=== PATIENT | female | born 1975 | race Caucasian/White ===

== ENCOUNTER 2017-07-17 14:33 | Emergency (ER) | payer SELFPAY ==
[2017-07-17] MEDS ORDERED: NORMAL SALINE 1000 ML 1,000 ML IV PRN (17:12)
[2017-07-17] MEDS ORDERED: ONDANSETRON HCL INJ/PF 4 MG/2 ML SDV IV ONE (17:12)
[2017-07-17] MEDS ORDERED: FAMOTIDINE INJ/PF 20 MG/2 ML SDV IV ONE (17:12)
--- NOTE | 2017-07-17 17:16 | ER Document Report ---
ED GI/ - General Chief Complaint: Nausea/Vomiting/Diarrhea Stated Complaint: ABDOMINAL PAIN Time Seen by Provider: 07/17/17 17:06 Mode of Arrival: Ambulatory Information source: Patient TRAVEL OUTSIDE OF THE [place] IN LAST 30 DAYS: No - HPI Patient complains to provider of: Abdominal pain, Vomiting Onset: Other - 3 days Timing/Duration: Gradual, Persistent Quality of pain: Achy, Burning Severity at maximum: Moderate Severity in ED: Moderate Pain Level: 3 Location: Epigastric Associated symptoms: Diarrhea, Nausea, Vomiting Similar symptoms previously: Yes Recently seen / treated by doctor: No Notes: 07/17/17 17:13 Patient is a 41-year-old female with a history of gastric ulcers who presents to the emergency room today complaining of epigastric and right upper quadrant abdominal pain with "ulcers flaring up", symptoms have been going on since Thursday, she also has 2 episodes of vomiting today which was acidic in nature , and diarrhea, she reports some abdominal bloating or swelling as well, patient has a control specialist, Dr. Huston that she follows with, denies any blood in her vomit or stools, no urinary symptoms - Related Data Allergies/Adverse Reactions: levofloxacin [From Levaquin] Allergy (Severe, Verified 09/09/16 11:42) MUSCLE PAIN NSAIDS (Non-Steroidal Anti-Inflamma [Nsaids] Allergy (Severe, Verified 09/09/16 11:42) AGGRAVATES KIDNEY STONES ketorolac tromethamine [From Toradol] Allergy (Intermediate, Verified 09/09/16 11:42) MAKES FEEL LIKE HEAD IS GOING TO BURST latex [Latex] Allergy (Intermediate, Verified 09/09/16 11:42) RASH, RIPS SKIN OFF promethazine HCl [From Phenergan] Allergy (Intermediate, Verified 09/09/16 11:42 ) MAKES FEEL WORSE tramadol Allergy (Intermediate, Verified 09/09/16 11:42) MAKES HEAD FEEL LIKE GOING TO BURST Penicillins Allergy (Mild, Verified 09/09/16 11:42) RASH Past Medical History - General Information source: Patient - Social History Smoking Status: Current Every Day Smoker Drug Abuse: Marijuana Family History: Reviewed & Not Pertinent Patient has suicidal ideation: No Patient has homicidal ideation: No - Past Medical History Cardiac Medical History: Reports: Hx Hypertension Denies: Hx Coronary Artery Disease, Hx Heart Attack Pulmonary Medical History: Reports: Hx Asthma, Hx Bronchitis, Hx COPD Denies: Hx Pneumonia Neurological Medical History: Reports: Hx Migraine. Denies: Hx Cerebrovascular Accident, Hx Seizures Renal/ Medical History: Denies: Hx Peritoneal Dialysis Musculoskeltal Medical History: Reports Hx Arthritis Past Surgical History: Reports: Hx Orthopedic Surgery. Denies: Hx Hysterectomy - Immunizations Hx Diphtheria, Pertussis, Tetanus Vaccination: Yes - < 5yrs Review of Systems - Review of Systems Constitutional: No symptoms reported EENT: No symptoms reported Cardiovascular: No symptoms reported Respiratory: No symptoms reported Gastrointestinal: See HPI Genitourinary: No symptoms reported Female Genitourinary: No symptoms reported Musculoskeletal: No symptoms reported Skin: No symptoms reported Hematologic/Lymphatic: No symptoms reported Neurological/Psychological: No symptoms reported -: Yes All other systems reviewed and negative Physical Exam - Vital signs Vitals: Temp Pulse Resp BP Pulse Ox 98.9 F 77 20 144/99 H 100 07/17/17 14:54 07/17/17 14:54 07/17/17 14:54 07/17/17 14:54 07/17/17 14:54 Interpretation: Normal - General General appearance: Appears well, Alert - HEENT Head: Normocephalic, Atraumatic Eyes: Normal Pupils: PERRL - Respiratory Respiratory status: No respiratory distress Chest status: Nontender Breath sounds: Normal Chest palpation: Normal - Cardiovascular Rhythm: Regular Heart sounds: Normal auscultation Murmur: No - Abdominal Inspection: Normal Distension: No distension Bowel sounds: Normal Tenderness: Tender - epigastric Organomegaly: No organomegaly - Back Back: Normal, Nontender - Extremities General upper extremity: Normal inspection, Nontender, Normal color, Normal ROM , Normal temperature General lower extremity: Normal inspection, Nontender, Normal color, Normal ROM , Normal temperature, Normal weight bearing. No: Darryl's sign - Neurological Neuro grossly intact: Yes Cognition: Normal Orientation: AAOx4 [place] Coma Scale Eye Opening: Spontaneous [place] Coma Scale Verbal: Oriented [place] Coma Scale Motor: Obeys Commands [place] Coma Scale Total: 15 Speech: Normal Motor strength normal: LUE, RUE, LLE, RLE Sensory: Normal - Psychological Associated symptoms: Normal affect, Normal mood - Skin Skin Temperature: Warm Skin Moisture: Dry Skin Color: Normal Course - Re-evaluation Re-evalutation: 07/17/17 19:23 Patient resting comfortably, reports feeling much better, lab findings were discussed with her at bedside which are consistent with mild dehydration and urinary tract infection, she was started on antibiotics for this, also provided with several prescriptions for her gastrointestinal medications, she was advised to follow-up with her control specialist or return if symptoms worsen, patient acknowledges understanding and agreement with this plan - Vital Signs Vital signs: Temp Pulse Resp BP Pulse Ox 98.9 F 77 20 144/99 H 100 07/17/17 14:54 07/17/17 14:54 07/17/17 14:54 07/17/17 14:54 07/17/17 14:54 - Laboratory Result Diagrams: 07/17/17 18:15 07/17/17 18:15 Laboratory results interpreted by me: 07/17/17 07/17/17 07/17/17 18:05 18:15 18:15 Hgb 11.1 L Hct 35.2 L MCV 71 L MCH 22.5 L MCHC 31.5 L RDW 20.0 H Plt Count 533 H Chloride 108 H Carbon Dioxide 21 L Glucose 130 H Urine Blood MODERATE H Urine Nitrite POSITIVE H Urine Urobilinogen 2.0 H Discharge - Discharge Clinical Impression: Epigastric abdominal pain Condition: Stable Disposition: HOME, SELF-CARE Instructions: Abdominal Pain ([facility]) Additional Instructions: Follow-up with her control specialist and primary care provider in the next 2-3 days. Return to the emergency room immediately if symptoms worsen or any additional concerns. Prescriptions: Dicyclomine HCl [Bentyl 20 mg Tablet] 20 mg PO QID #120 tablet Esomeprazole Mag Trihydrate [Nexium] 40 mg PO DAILY #30 cap Nitrofurantoin/Nitrofuran Mac [Macrobid 100 mg Capsule] 100 mg PO BID #20 capsule Phenobarb/Hyoscy/Atropine/Scop [ Tablet] 16.2 mg PO TID #60 tablet Sucralfate [Carafate 1 gm Tablet] 1 gm PO ACHS #30 tablet Referrals: RENEA MCKAY PA-C [Primary Care Provider] - Follow up as needed TARA HUSTON MD [ACTIVE STAFF] - Follow up as needed
[2017-07-17 18:28] LABS: ABSOLUTE BASOPHILS # (AUTO) 0.1 10^3/uL (0.0-0.2); ABSOLUTE EOSINOPHILS # (AUTO) 0.1 10^3/uL (0.0-0.6); ABSOLUTE LYMPHOCYTES (AUTO) 2.3 10^3/uL (0.5-4.7); ABSOLUTE MONOCYTES (AUTO) 0.5 10^3/uL (0.1-1.4); ABSOLUTE NEUT (AUTO) 6.9 10^3/uL (1.7-8.2); BASOPHILS % (AUTO) 1.3 % (0-2); EOSINOPHILS % (AUTO) 1.5 % (0-6); HEMATOCRIT 35.2 % (36.0-47.0); HEMOGLOBIN 11.1 g/dL (12.0-15.5); HGB HCT DIFFERENCE -1.9; LYMPHOCYTES % (AUTO) 23.5 % (13-45); MEAN CORPUSCULAR HEMOGLOBIN 22.5 pg (27.0-33.4); MEAN CORPUSCULAR HGB CONC 31.5 g/dL (32.0-36.0); MEAN CORPUSCULAR VOLUME 71 fl (80-97); MONOCYTES % (AUTO) 4.6 % (3-13); RED BLOOD COUNT 4.94 10^6/uL (3.72-5.28); SEGMENTED NEUTROPHILS % (AUTO) 69.1 % (42-78)
[2017-07-17 18:34] LABS: APPEARANCE,URINE CLEAR; BILIRUBIN,URINE NEGATIVE (NEGATIVE); GLUCOSE, URINE NEGATIVE (NEGATIVE); KETONES,URINE NEGATIVE (NEGATIVE); LEUKOCYTE ESTERASE,URINE NEGATIVE (NEGATIVE); NITRITE,URINE POSITIVE (NEGATIVE); PROTEIN,URINE NEGATIVE (NEGATIVE); URINE SPECIFIC GRAVITY 1.017
[2017-07-17 18:47] LABS: ALANINE AMINOTRANSFERASE 20 U/L (9-52); ALBUMIN 4.5 g/dL (3.5-5.0); ALKALINE PHOSPHATASE 104 U/L (38-126); ANION GAP 11 (5-19); ASPARTATE AMINO TRANSFERASE 19 U/L (14-36); BILIRUBIN,DIRECT 0.4 mg/dL (0.0-0.4); BILIRUBIN,TOTAL 0.4 mg/dL (0.2-1.3); BLOOD UREA NITROGEN 10 mg/dL (7-20); CARBON DIOXIDE 21 mmol/L (22-30); CHLORIDE 108 mmol/L (98-107); CREATININE RESULT 0.79 mg/dL (0.52-1.25); GLUCOSE 130 mg/dL (75-110); LIPASE 36.2 U/L (23-300); POTASSIUM 4.8 mmol/L (3.6-5.0); SODIUM 139.6 mmol/L (137-145); TOTAL PROTEIN 7.5 g/dL (6.3-8.2)
[2017-07-17] MEDS ORDERED: DICYCLOMINE HCL 20 MG TABLET PO ONE (18:58)
[2017-07-17] MEDS ORDERED: NITROFURANTOIN MONOHYD/M-CRYST 100 MG CAPSULE PO ONE (19:01)
[2017-07-17] MEDS ORDERED: MORPHINE SULFATE 10 MG/ML INJ IV ONE (19:03)
[2017-07-17 20:03] VITALS: BP 147/82
== END 2017-07-17 20:04 | disposition home or self-care (01) ==
LOC: ER 14:33
DX: K25.9 Gastric ulcer, unspecified as acute or chronic, without hemorrhage or perforation (principal); R11.2 Nausea with vomiting, unspecified; R19.7 Diarrhea, unspecified; R10.13 Epigastric pain; R10.11 Right upper quadrant pain; F17.200 Nicotine dependence, unspecified, uncomplicated; J44.9 Chronic obstructive pulmonary disease, unspecified; I10 Essential (primary) hypertension; Z87.11 Personal history of peptic ulcer disease; Z88.1 Allergy status to other antibiotic agents; Z88.8 Allergy status to other drugs, medicaments and biological substances; Z91.040 Latex allergy status; Z88.5 Allergy status to narcotic agent; Z88.0 Allergy status to penicillin
CPT/HCPCS: 99284; 36415; 83690; 85025; 80053; 81001; J3490; J2270; J2405; J7030; S0028; J8499

== ENCOUNTER 2017-08-14 10:34 | Emergency (ER) | payer SELFPAY ==
[2017-08-14] MEDS ORDERED: DIPHENHYDRAMINE HCL 50 MG/ML VIAL IV ONE (10:54)
[2017-08-14] MEDS ORDERED: PROCHLORPERAZINE EDISYLATE INJ 10 MG/2 ML VIAL IV ONE (10:54)
[2017-08-14] MEDS ORDERED: NORMAL SALINE 1000 ML 1,000 ML IV ONE (10:55)
[2017-08-14] MEDS ORDERED: FAMOTIDINE INJ/PF 20 MG/2 ML SDV IV ONE (10:55)
--- NOTE | 2017-08-14 11:01 | ER Document Report ---
ED Headache - General Chief Complaint: Headache Stated Complaint: HEADACHE Time Seen by Provider: 08/14/17 10:41 Mode of Arrival: Ambulatory Information source: Patient Notes: 41-year-old female presents to ED for complaint of headache 3 weeks. She states she has a long history of migraines and is seen frequently and was being seen by Dr. Garcia Botox injections until her insurance would not let her get them anymore. TRAVEL OUTSIDE OF THE [place] IN LAST 30 DAYS: No - HPI Patient complains to provider of: Headache, "Migraine" Patient reports: Frequent migraines, Hx chronic headaches Onset: Other - 3 weeks Timing: Still present Quality of pain: Sharp Severity: Moderate Pain Level: 4 Associated symptoms: Nausea/vomiting - No vomiting, Photophobia, Other Exacerbated by: Light, Noise, Movement, Position Similar symptoms previously: Yes Recently seen / treated by doctor: Yes - Related Data Allergies/Adverse Reactions: levofloxacin [From Levaquin] Allergy (Severe, Verified 08/14/17 10:37) MUSCLE PAIN NSAIDS (Non-Steroidal Anti-Inflamma [Nsaids] Allergy (Severe, Verified 08/14/17 10:37) AGGRAVATES KIDNEY STONES ketorolac tromethamine [From Toradol] Allergy (Intermediate, Verified 08/14/17 10:37) MAKES FEEL LIKE HEAD IS GOING TO BURST latex [Latex] Allergy (Intermediate, Verified 08/14/17 10:37) RASH, RIPS SKIN OFF promethazine HCl [From Phenergan] Allergy (Intermediate, Verified 08/14/17 10:37 ) MAKES FEEL WORSE tramadol Allergy (Intermediate, Verified 08/14/17 10:37) MAKES HEAD FEEL LIKE GOING TO BURST Penicillins Allergy (Mild, Verified 08/14/17 10:37) RASH Past Medical History - General Information source: Patient - Social History Smoking Status: Current Every Day Smoker Cigarette use (# per day): Yes - 1/2 ppd Chew tobacco use (# tins/day): No Smoking Education Provided: Yes - less than 2 min Frequency of alcohol use: None Drug Abuse: Marijuana - 2-3 times a week Occupation: Housewife Lives with: Family Family History: CAD, COPD, CVA, Hyperlipidemia, Hypertension, Malignancy, Thyroid Disfunction. denies: DM Patient has suicidal ideation: No Patient has homicidal ideation: No - Past Medical History Cardiac Medical History: Reports: Hx Hypertension Pulmonary Medical History: Reports: Hx Asthma, Hx Bronchitis, Hx COPD, Hx Pneumonia EENT Medical History: Reports: None Neurological Medical History: Reports: Hx Migraine Renal/ Medical History: Reports: Hx Ovarian Cysts Malignancy Medical History: Reports: None GI Medical History: Reports: Hx Gastritis, Hx Gastroesophageal Reflux Disease, Hx Ulcer, Hx Endoscopy, Other - Menard's esophagitis Musculoskeltal Medical History: Reports Hx Arthritis, Reports Hx Musculoskeletal Deformity, Reports Hx Musculoskeletal Trauma - Wrist knee Skin Medical History: Reports None Psychiatric Medical History: Reports: Hx Anxiety, Hx Post Traumatic Stress Disorder Traumatic Medical History: Reports: Hx Fractures - Wrist Infectious Medical History: Reports: None Past Surgical History: Reports: Hx Oral Surgery - [place] teeth, Hx Orthopedic Surgery - Immunizations Immunizations up to date: Yes Hx Diphtheria, Pertussis, Tetanus Vaccination: Yes - < 5yrs Review of Systems - Review of Systems Constitutional: No symptoms reported EENT: No symptoms reported Cardiovascular: No symptoms reported Respiratory: No symptoms reported Gastrointestinal: Nausea. denies: Vomiting Genitourinary: No symptoms reported Female Genitourinary: No symptoms reported Musculoskeletal: No symptoms reported Skin: No symptoms reported Hematologic/Lymphatic: No symptoms reported Neurological/Psychological: Headaches Physical Exam - Vital signs Vitals: Temp Pulse Resp BP Pulse Ox 98.6 F 65 16 168/100 H 99 08/14/17 10:36 08/14/17 10:36 08/14/17 10:36 08/14/17 10:36 08/14/17 10:36 Interpretation: Hypertensive - General General appearance: Appears well, Alert - HEENT Head: Normocephalic, Atraumatic Eyes: Normal Pupils: PERRL Ears: Normal External canal: Normal Tympanic membrane: Normal Sinus: Normal Nasal: Normal Mouth/Lips: Normal Mucous membranes: Normal Pharynx: Normal Neck: Normal - Respiratory Respiratory status: No respiratory distress Chest status: Nontender Breath sounds: Normal Chest palpation: Normal - Cardiovascular Rhythm: Regular Heart sounds: Normal auscultation Murmur: No - Abdominal Inspection: Normal Distension: No distension Bowel sounds: Normal Tenderness: Nontender Organomegaly: No organomegaly - Back Back: Normal, Nontender - Extremities General upper extremity: Normal inspection, Nontender, Normal color, Normal ROM , Normal temperature General lower extremity: Normal inspection, Nontender, Normal color, Normal ROM , Normal temperature, Normal weight bearing. No: Darryl's sign - Neurological Neuro grossly intact: Yes Cognition: Normal Orientation: AAOx4 [place] Coma Scale Eye Opening: Spontaneous [place] Coma Scale Verbal: Oriented [place] Coma Scale Motor: Obeys Commands [place] Coma Scale Total: 15 Speech: Normal Cranial nerves: Normal Cerebellar coordination: Normal Motor strength normal: LUE, RUE, LLE, RLE Additional motor exam normals: Equal clinical radiologist Babinski reflex: Normal (flexor plantar) Sensory: Normal Biceps - Reflex grade: 2 = Normal Triceps - Reflex grade: 2 = Normal Brachioradialis - Reflex grade: 2 = Normal Knee - Reflex grade: 2 = Normal Ankle - Reflex grade: 2 = Normal - Psychological Associated symptoms: Normal affect, Normal mood - Skin Skin Temperature: Warm Skin Moisture: Dry Skin Color: Normal Course - Re-evaluation Re-evalutation: 08/14/17 12:12 Received complete relief from headache. States she has never had Compazine for headache before and it worked great. Requested a prescription for some Compazine before going home. Small prescription of Compazine written and instructed patient to follow-up with her primary doctor. - Vital Signs Vital signs: Temp Pulse Resp BP Pulse Ox 98.0 F 64 16 139/84 H 100 08/14/17 12:17 08/14/17 12:17 08/14/17 12:17 08/14/17 12:17 08/14/17 12:17 Discharge - Discharge Clinical Impression: Headache Qualifiers: Headache type: unspecified Headache chronicity pattern: chronic headache Intractability: not intractable Qualified Code(s): R51 - Headache Condition: Stable Disposition: HOME, SELF-CARE Additional Instructions: HEADACHE: The physician does not feel that the headache you are experiencing has a serious underlying cause. Most headaches are due to emotional stress, with resultant muscle tension (tension headache). Occasionally, headaches are secondary to changes in the blood vessels of the scalp (vascular headache and migraine headache). Sometimes, a headache is the first symptom of another developing illness, such as a viral infection. You have no evidence of stroke, bleeding, meningitis, or other serious cause of your headache. The treatment of headaches varies with the severity and cause of the pain. Not all headaches need pain shots. In fact, there is evidence that using narcotics for headaches may make them worse in the long run. The physician will determine the therapy that's in your best interest. If you develop a fever, if the headache is different from any you've previously experienced, or if the headache progressively worsens, then call your physician at once or go to the emergency room. USE OF DIPHENHYDRAMINE: Diphenhydramine (Benadryl) is an antihistamine and has been recommended to help treat your headache and to prevent side effects of other medications used to treat headaches. The medication can be repeated four times daily. Age Elixir (12.5 mg/tsp) 25 mg pill adult 1-2 tabs Antihistamines may cause drowsiness, especially with the first dose. Do not operate machinery or drive while under the effects of the medication. Do not combine the medication with alcohol, or with any other medication without talking to your doctor. INTRAVENOUS COMPAZINE FOR HEADACHE: You have received therapy for headaches, using intravenous Compazine. This treatment is dramatically successful in relieving the headache in about 50 percent of cases. When it works, it provides a rapid method of eliminating the headache without resorting to narcotics (and the problems associated with them). Most patients still feel fully alert after the Compazine, but others may be slightly drowsy. It's best not to drive or work with machinery for six to eight hours. Do not take alcohol or other medication unless you discuss it with the doctor. If you develop tightness and spasms in your muscles, especially the neck and tongue, you should return. This is a side effect which can be treated. FOLLOW-UP CARE: If you have been referred to a physician for follow-up care, call the physician s office for an appointment as you were instructed or within the next two days. If you experience worsening or a significant change in your symptoms, notify the physician immediately or return to the Emergency Department at any time for re-evaluation. Prescriptions: Prochlorperazine Maleate [Compazine 10 mg Tablet] 10 mg PO Q8HP PRN #10 tablet PRN Reason: Forms: Smoking Cessation Education, Elevated Blood Pressure Referrals: RENEA MCKAY PA-C [Primary Care Provider] - Follow up as needed
[2017-08-14 12:24] VITALS: BP 139/84
== END 2017-08-14 12:24 | disposition home or self-care (01) ==
LOC: ER 10:34
DX: R51 Headache (principal); R11.0 Nausea; I10 Essential (primary) hypertension; J44.9 Chronic obstructive pulmonary disease, unspecified; F17.210 Nicotine dependence, cigarettes, uncomplicated; Z71.6 Tobacco abuse counseling; Z88.1 Allergy status to other antibiotic agents; Z88.8 Allergy status to other drugs, medicaments and biological substances; Z91.040 Latex allergy status; Z88.5 Allergy status to narcotic agent
CPT/HCPCS: 99284; 96361; 96374; 96375; J1200; J0780; J7030; S0028

== ENCOUNTER 2018-03-04 08:58 | Emergency (ER) | payer SELFPAY ==
--- NOTE | 2018-03-04 09:25 | ER Document Report ---
ED Medical Screen (RME) - General Chief Complaint: Abdominal Pain Stated Complaint: ABDOMINAL PAIN Time Seen by Provider: 03/04/18 09:19 Mode of Arrival: Ambulatory Information source: Patient, Parent Notes: 42-year-old female with a history of fibromyalgia, GERD, gastric ulcers presents with complaint of right upper quadrant and epigastric abdominal pain that started 4 days prior to arrival. Patient is under the care of Dr. Bonilla from gastroenterology. She states she currently takes Carafate, Dexilant and this has not been helping. Patient describes the pain as sharp, throbbing. Patient has had associated nausea and vomiting. Patient's last upper endoscopy was 1 year ago. She has not attempted to call her stenotypist since this occurred. She denies any black or bloody stools. Her last bowel movement was yesterday. I have greeted and performed a rapid medical assessment of the patient. A comprehensive evaluation and assessment will be performed by another ED provider. Medical decision making, lab review/xrays if performed will be reviewed by the ED provider assuming care of the patient. PHYSICAL EXAMINATION: GENERAL: Illl-appearing, well-nourished and in no acute distress. HEAD: Atraumatic, normocephalic. EYES: Pupils equal round extraocular movements intact, conjunctiva are normal. ENT: Nares patent NECK: Normal range of motion LUNGS: No respiratory distress Musculoskeletal: Normal range of motion NEUROLOGICAL: Normal speech, normal gait. PSYCH: Normal mood, normal affect. SKIN: Warm, Dry, normal turgor, no rashes or lesions noted. TRAVEL OUTSIDE OF THE [place] IN LAST 30 DAYS: No - HPI Onset: Last week Onset/Duration: Gradual Quality of pain: Burning, Stabbing Severity: Moderate Pain Level: 4 Associated Symptoms: Abdominal pain, Nausea. denies: Diarrhea Exacerbated by: Food Relieved by: Denies Similar symptoms previously: Yes Recently seen / treated by doctor: No - Related Data Smoking: Cigarettes Frequency of alcohol use: None Drug Abuse: None Allergies/Adverse Reactions: levofloxacin [From Levaquin] Allergy (Severe, Verified 03/04/18 09:00) MUSCLE PAIN NSAIDS (Non-Steroidal Anti-Inflamma [Nsaids] Allergy (Severe, Verified 03/04/18 09:00) AGGRAVATES KIDNEY STONES ketorolac tromethamine [From Toradol] Allergy (Intermediate, Verified 03/04/18 09:00) MAKES FEEL LIKE HEAD IS GOING TO BURST latex [Latex] Allergy (Intermediate, Verified 03/04/18 09:00) RASH, RIPS SKIN OFF promethazine HCl [From Phenergan] Allergy (Intermediate, Verified 03/04/18 09:00 ) MAKES FEEL WORSE tramadol Allergy (Intermediate, Verified 03/04/18 09:00) MAKES HEAD FEEL LIKE GOING TO BURST Penicillins Allergy (Mild, Verified 03/04/18 09:00) RASH Past Medical History - Social History Chew tobacco use (# tins/day): No Frequency of alcohol use: None Drug Abuse: None - Past Medical History Cardiac Medical History: Reports: Hx Hypertension Denies: Hx Coronary Artery Disease, Hx Heart Attack Pulmonary Medical History: Reports: Hx Asthma, Hx Bronchitis, Hx COPD, Hx Pneumonia Neurological Medical History: Reports: Hx Migraine. Denies: Hx Cerebrovascular Accident, Hx Seizures Renal/ Medical History: Reports: Hx Ovarian Cysts. Denies: Hx Peritoneal Dialysis GI Medical History: Reports: Hx Gastritis, Hx Gastroesophageal Reflux Disease, Hx Ulcer, Hx Endoscopy Musculoskeltal Medical History: Reports Hx Arthritis, Reports Hx Musculoskeletal Deformity, Reports Hx Musculoskeletal Trauma - Wrist knee Psychiatric Medical History: Reports: Hx Anxiety, Hx Post Traumatic Stress Disorder Traumatic Medical History: Reports: Hx Fractures - Wrist Past Surgical History: Reports: Hx Oral Surgery - [place] teeth, Hx Orthopedic Surgery. Denies: Hx Hysterectomy - Immunizations Immunizations up to date: Yes Hx Diphtheria, Pertussis, Tetanus Vaccination: Yes - < 5yrs Physical Exam - Vital signs Vitals: Temp Pulse Resp BP Pulse Ox 97.9 F 100 18 143/100 H 100 03/04/18 09:02 03/04/18 09:02 03/04/18 09:02 03/04/18 09:02 03/04/18 09:02 Course - Vital Signs Vital signs: Temp Pulse Resp BP Pulse Ox 97.9 F 100 18 143/100 H 100 03/04/18 09:02 03/04/18 09:02 03/04/18 09:02 03/04/18 09:02 03/04/18 09:02
[2018-03-04] MEDS ORDERED: ONDANSETRON 4 MG TAB.RAPDIS PO ONE (09:26)
[2018-03-04] MEDS ORDERED: LIDOCAINE 2% VISCOUS SOLN 20 ML UDCUP PO ONE (09:26)
[2018-03-04] MEDS ORDERED: METOCLOPRAMIDE HCL ORAL SOLN 10 MG/10 ML UDCUP PO ONE (09:26)
[2018-03-04] MEDS ORDERED: MAG HYDROX/AL HYDROX/SIMETH SUSP 30 ML UDCUP PO ONE (09:26)
--- NOTE | 2018-03-04 09:45 | ER Document Report ---
ED GI/ - General Chief Complaint: Abdominal Pain Stated Complaint: ABDOMINAL PAIN Time Seen by Provider: 03/04/18 09:19 Mode of Arrival: Ambulatory Information source: Patient Notes: Patient presents with a four-day history of right upper quadrant epigastric pain. Patient states she has a history of Menard's esophagus with gastric ulcers. Patient states pain feels typical of her pain she has had in the past due to her ulcers. Patient denies any hematemesis or hematochezia. Patient reports nausea but denies any vomiting or diarrhea. Patient states that she is out of Bentyl which typically manages her pain symptoms. TRAVEL OUTSIDE OF THE [place] IN LAST 30 DAYS: No - HPI Patient complains to provider of: Abdominal pain. No: Vomiting Onset: Other - 4 days Timing/Duration: Persistent Quality of pain: Achy Pain Level: 3 Location: RUQ, Other - Epigastric Vaginal bleeding (Compared to normal period): None Associated symptoms: Nausea. denies: Blood in emesis, Blood in stool, Diarrhea , Fever, Loss of appetite, Urinary hesitancy, Urinary frequency, Urinary retention, Vomiting Exacerbated by: Denies Relieved by: Denies Similar symptoms previously: Yes Recently seen / treated by doctor: No - Related Data Allergies/Adverse Reactions: levofloxacin [From Levaquin] Allergy (Severe, Verified 03/04/18 09:00) MUSCLE PAIN NSAIDS (Non-Steroidal Anti-Inflamma [Nsaids] Allergy (Severe, Verified 03/04/18 09:00) AGGRAVATES KIDNEY STONES ketorolac tromethamine [From Toradol] Allergy (Intermediate, Verified 03/04/18 09:00) MAKES FEEL LIKE HEAD IS GOING TO BURST latex [Latex] Allergy (Intermediate, Verified 03/04/18 09:00) RASH, RIPS SKIN OFF promethazine HCl [From Phenergan] Allergy (Intermediate, Verified 03/04/18 09:00 ) MAKES FEEL WORSE tramadol Allergy (Intermediate, Verified 03/04/18 09:00) MAKES HEAD FEEL LIKE GOING TO BURST Penicillins Allergy (Mild, Verified 03/04/18 09:00) RASH Past Medical History - General Information source: Patient, Parent - Social History Smoking Status: Current Every Day Smoker Chew tobacco use (# tins/day): No Smoking Education Provided: Yes Frequency of alcohol use: None Drug Abuse: None Occupation: None Family History: CAD, COPD, CVA, Hyperlipidemia, Hypertension, Malignancy, Thyroid Disfunction. denies: DM Patient has suicidal ideation: No Patient has homicidal ideation: No - Past Medical History Cardiac Medical History: Reports: Hx Hypertension Denies: Hx Coronary Artery Disease, Hx Heart Attack Pulmonary Medical History: Reports: Hx Asthma, Hx Bronchitis, Hx COPD, Hx Pneumonia Neurological Medical History: Reports: Hx Migraine. Denies: Hx Cerebrovascular Accident, Hx Seizures Renal/ Medical History: Reports: Hx Ovarian Cysts. Denies: Hx Peritoneal Dialysis GI Medical History: Reports: Hx Gastritis, Hx Gastroesophageal Reflux Disease, Hx Ulcer, Hx Endoscopy, Other - Menard's esophagus Musculoskeltal Medical History: Reports Hx Arthritis, Reports Hx Musculoskeletal Deformity, Reports Hx Musculoskeletal Trauma - Wrist knee Psychiatric Medical History: Reports: Hx Anxiety, Hx Post Traumatic Stress Disorder Traumatic Medical History: Reports: Hx Fractures - Wrist Past Surgical History: Reports: Hx Oral Surgery - [place] teeth, Hx Orthopedic Surgery. Denies: Hx Hysterectomy - Immunizations Immunizations up to date: Yes Hx Diphtheria, Pertussis, Tetanus Vaccination: Yes - < 5yrs Review of Systems - Review of Systems Constitutional: No symptoms reported. denies: Fever, Recent illness EENT: No symptoms reported Cardiovascular: No symptoms reported. denies: Chest pain Respiratory: No symptoms reported. denies: Cough, Short of breath Gastrointestinal: Abdominal pain, Nausea. denies: Diarrhea, Vomiting Genitourinary: No symptoms reported. denies: Dysuria Female Genitourinary: No symptoms reported Musculoskeletal: No symptoms reported. denies: Back pain, Neck pain Skin: No symptoms reported Hematologic/Lymphatic: No symptoms reported Neurological/Psychological: No symptoms reported. denies: Headaches Physical Exam - Vital signs Vitals: Temp Pulse Resp BP Pulse Ox 97.9 F 100 18 143/100 H 100 03/04/18 09:02 03/04/18 09:02 03/04/18 09:02 03/04/18 09:02 03/04/18 09:02 - General General appearance: Appears well, Alert In distress: None - HEENT Head: Normocephalic, Atraumatic Eyes: Normal Conjunctiva: Normal Nasal: Normal Mouth/Lips: Normal Mucous membranes: Normal Neck: Normal, Supple. No: Lymphadenopathy - Respiratory Respiratory status: No respiratory distress Chest status: Nontender Breath sounds: Normal. No: Rales, Rhonchi, Stridor, Wheezing Chest palpation: Normal - Cardiovascular Rhythm: Regular Heart sounds: S1 appreciated, S2 appreciated Murmur: No - Abdominal Inspection: Normal Distension: No distension Bowel sounds: Normal Tenderness: Tender - RUQ Organomegaly: No organomegaly - Back Back: Normal, Nontender. No: CVA tenderness, Vertebra tenderness - Extremities General upper extremity: Normal inspection, Normal ROM General lower extremity: Normal inspection, Normal ROM - Neurological Neuro grossly intact: Yes Cognition: Normal [place] Coma Scale Eye Opening: Spontaneous [place] Coma Scale Verbal: Oriented [place] Coma Scale Motor: Obeys Commands [place] Coma Scale Total: 15 - Psychological Associated symptoms: Normal affect, Normal mood - Skin Skin Temperature: Warm Skin Moisture: Dry Skin Color: Normal Course - Re-evaluation Re-evalutation: 03/04/18 12:11 Patient reports abdominal pain is improved after medication. Patient's abdomen soft, no guarding. Patient states that nausea is improved after Zofran. Patient states that her pain has been similar to pain she has had in the past due to her gastric/duodenal ulcer. Patient reports that she has better pain relief with use of Bentyl and is requesting a prescription for this. Patient encouraged to follow-up with her rivet sticker for further evaluation. Patient's ultrasound without findings concerning for cholecystitis, cholangitis or choledocholithiasis. Patient afebrile and nontoxic in appearance. - Vital Signs Vital signs: Temp Pulse Resp BP Pulse Ox 98.5 F 75 18 134/86 H 100 03/04/18 11:53 03/04/18 11:53 03/04/18 11:53 03/04/18 11:53 03/04/18 11:53 - Laboratory Result Diagrams: 03/04/18 10:20 03/04/18 10:20 Laboratory results interpreted by me: 03/04/18 03/04/18 03/04/18 09:05 10:20 10:20 Hgb 10.3 L Hct 32.0 L MCV 70 L MCH 22.5 L RDW 18.5 H Plt Count 457 H Seg Neutrophils % 78.3 H Chloride 109 H Calcium 10.3 H AST 13 L Urine Blood SMALL H Labs- Entire Visit 03/04/18 03/04/18 03/04/18 09:05 10:20 10:20 WBC 8.5 RBC 4.57 Hgb 10.3 L Hct 32.0 L MCV 70 L MCH 22.5 L MCHC 32.1 RDW 18.5 H Plt Count 457 H Seg Neutrophils % 78.3 H Lymphocytes % 16.8 Monocytes % 3.6 Eosinophils % 0.6 Basophils % 0.7 Absolute Neutrophils 6.7 Absolute Lymphocytes 1.4 Absolute Monocytes 0.3 Absolute Eosinophils 0.0 Absolute Basophils 0.1 Sodium 144.3 Potassium 4.9 Chloride 109 H Carbon Dioxide 23 Anion Gap 12 BUN 9 Creatinine 0.59 Est GFR ( Amer) > 60 Est GFR (Non-Af Amer) > 60 Glucose 97 Calcium 10.3 H Total Bilirubin 0.3 Direct Bilirubin 0.3 Neonat Total Bilirubin Not Reportable Neonat Direct Bilirubin Not Reportable Neonat Indirect Bili Not Reportable AST 13 L ALT 17 Alkaline Phosphatase 85 Total Protein 7.5 Albumin 4.5 Lipase 49.2 Urine Color STRAW Urine Appearance SLIGHTLY-CLOUDY Urine pH 7.0 Ur Specific [place] 1.004 Urine Protein NEGATIVE Urine Glucose (UA) NEGATIVE Urine Ketones NEGATIVE Urine Blood SMALL H Urine Nitrite NEGATIVE Urine Bilirubin NEGATIVE Urine Urobilinogen NEGATIVE Ur Leukocyte Esterase NEGATIVE Urine WBC (Auto) 0 Urine RBC (Auto) 1 Squamous Epi Cells Auto 5 Urine Mucus (Auto) RARE Urine Ascorbic Acid NEGATIVE Urine HCG, Qual NEGATIVE - Diagnostic Test Radiology reviewed: Reports reviewed Discharge - Discharge Clinical Impression: Abdominal pain Qualifiers: Abdominal location: right upper quadrant Qualified Code(s): R10.11 - Right upper quadrant pain Condition: Stable Disposition: HOME, SELF-CARE Instructions: Abdominal Pain ([facility]), Antinausea Medication ([facility]) Additional Instructions: Return immediately for any new or worsening symptoms Followup with your primary care provider, call tomorrow to make a followup appointment Follow-up with your rivet sticker for further evaluation, call tomorrow for an appointment Prescriptions: Dicyclomine HCl [Bentyl 20 mg Tablet] 20 mg PO QID PRN #14 tablet PRN Reason: Ondansetron HCl [Zofran 4 mg Tablet] 1 - 2 tab PO Q6 PRN #10 tablet PRN Reason: Forms: Smoking Cessation Education Referrals: RENEA MCKAY PA-C [Primary Care Provider] - Follow up as needed TARA HUSTON MD [ACTIVE STAFF] - Follow up tomorrow
[2018-03-04] MEDS ORDERED: NORMAL SALINE 1000 ML 1,000 ML IV ONE (10:14)
[2018-03-04 10:42] LABS: ABSOLUTE BASOPHILS # (AUTO) 0.1 10^3/uL (0.0-0.2); ABSOLUTE LYMPHOCYTES (AUTO) 1.4 10^3/uL (0.5-4.7); ABSOLUTE MONOCYTES (AUTO) 0.3 10^3/uL (0.1-1.4); ABSOLUTE NEUT (AUTO) 6.7 10^3/uL (1.7-8.2); BASOPHILS % (AUTO) 0.7 % (0-2); EOSINOPHILS % (AUTO) 0.6 % (0-6); HEMOGLOBIN 10.3 g/dL (12.0-15.5); LYMPHOCYTES % (AUTO) 16.8 % (13-45); MEAN CORPUSCULAR HEMOGLOBIN 22.5 pg (27.0-33.4); MEAN CORPUSCULAR HGB CONC 32.1 g/dL (32.0-36.0); MEAN CORPUSCULAR VOLUME 70 fl (80-97); MONOCYTES % (AUTO) 3.6 % (3-13); PLATELET COUNT 457 10^3/uL (150-450); RED BLOOD COUNT 4.57 10^6/uL (3.72-5.28); RED CELL DISTRIBUTION WIDTH 18.5 % (11.5-14.0); SEGMENTED NEUTROPHILS % (AUTO) 78.3 % (42-78); TOTAL CELLS COUNTED % (AUTO) 100 %; WHITE BLOOD COUNT 8.5 10^3/uL (4.0-10.5)
[2018-03-04 10:47] LABS: APPEARANCE,URINE SLIGHTLY-CLOUDY; BILIRUBIN,URINE NEGATIVE (NEGATIVE); COLOR,URINE STRAW; GLUCOSE, URINE NEGATIVE (NEGATIVE); KETONES,URINE NEGATIVE (NEGATIVE); LEUKOCYTE ESTERASE,URINE NEGATIVE (NEGATIVE); NITRITE,URINE NEGATIVE (NEGATIVE); PROTEIN,URINE NEGATIVE (NEGATIVE); URINE SPECIFIC GRAVITY 1.004; UROBILINOGEN,URINE NEGATIVE mg/dL (<2.0)
[2018-03-04 11:07] LABS: ALANINE AMINOTRANSFERASE 17 U/L (9-52); ALBUMIN 4.5 g/dL (3.5-5.0); ALKALINE PHOSPHATASE 85 U/L (38-126); ANION GAP 12 (5-19); ASPARTATE AMINO TRANSFERASE 13 U/L (14-36); BILIRUBIN,DIRECT 0.3 mg/dL (0.0-0.4); BILIRUBIN,TOTAL 0.3 mg/dL (0.2-1.3); BLOOD UREA NITROGEN 9 mg/dL (7-20); CALCIUM 10.3 mg/dL (8.4-10.2); CARBON DIOXIDE 23 mmol/L (22-30); CHLORIDE 109 mmol/L (98-107); GLUCOSE 97 mg/dL (75-110); LIPASE 49.2 U/L (23-300); POTASSIUM 4.9 mmol/L (3.6-5.0); SODIUM 144.3 mmol/L (137-145); TOTAL PROTEIN 7.5 g/dL (6.3-8.2)
--- NOTE | 2018-03-04 11:29 | RADIOLOGY REPORT (SQ) ---
EXAM DESCRIPTION: U/S ABDOMEN LIMITED W/O DOP COMPLETED DATE/TIME: 03/04/2018 11:19 am REASON FOR STUDY: RUQ pain COMPARISON: Abdominal CT scan dated June 2016 TECHNIQUE: Dynamic and static grayscale images acquired of the abdomen and recorded on PACS. Ezrao js selected color Doppler and spectral images recorded. LIMITATIONS: None. FINDINGS: PANCREAS: No masses. Visualized pancreatic duct normal caliber. Pancreatic tail could no t be visualized due to overlying bowel gas. LIVER: No masses. Echotexture normal. LIVER VASCULATURE: Normal directional flow of the main portal vein. GALLBLADDER: No stones. Normal wall thickness. No pericholecystic fluid. Gallbladder is in a relativ e contracted state. ULTRASOUND-DETECTED GODFREY'S SIGN: Negative. INTRAHEPATIC DUCTS AND COMMON DUCT: CBD and intrahepatic ducts normal caliber. No filling defects. INFERIOR VENA CAVA: Normal flow. AORTA: No aneurysm. RIGHT KIDNEY: 9.9 cm in length. . Normal echogenicity. No solid or suspicious masses. No hydronephr osis. No calcifications. PERITONEAL AND RIGHT PLEURAL SPACE: No ascites or effusions. OTHER: No other significant findings. IMPRESSION: No significant intra-abdominal abnormalities were identified. Findings as noted above TECHNICAL DOCUMENTATION: JOB ID: [id number] [employer]- All Rights Reserved Reading location - IP/workstation name: [email or web address]
[2018-03-04] MEDS ORDERED: FENTANYL CITRATE INJ/PF 100 MCG/2 ML AMPUL IV ONE (11:41)
[2018-03-04 11:58] VITALS: BP 134/86
== END 2018-03-04 12:33 | disposition home or self-care (01) ==
LOC: ER 08:58
DX: R10.11 Right upper quadrant pain (principal); R10.13 Epigastric pain; R11.0 Nausea; F17.200 Nicotine dependence, unspecified, uncomplicated; I10 Essential (primary) hypertension; Z87.19 Personal history of other diseases of the digestive system; Z87.11 Personal history of peptic ulcer disease; Z88.1 Allergy status to other antibiotic agents; Z88.8 Allergy status to other drugs, medicaments and biological substances; Z91.040 Latex allergy status; Z88.5 Allergy status to narcotic agent; Z88.0 Allergy status to penicillin
CPT/HCPCS: 99284; 96361; 96374; 36415; 83690; 85025; 81025; 80053; 81001; 76705; S0119; J3010; J3490; J7030

== ENCOUNTER 2018-07-08 11:38 | Emergency (ER) | payer SELFPAY ==
[2018-07-08] MEDS ORDERED: LIDOCAINE 2% VISCOUS SOLN 20 ML UDCUP PO ONE ×2 (11:46→14:26)
--- NOTE | 2018-07-08 13:51 | RADIOLOGY REPORT (SQ) ---
EXAM DESCRIPTION: CT FACIAL AREA WITH COMPLETED DATE/TIME: 07/08/2018 1:34 pm REASON FOR STUDY: left lower jaw tenderness, poor dentition COMPARISON: None. TECHNIQUE: Post contrast images through the facial bones and orbits windowed for bone and soft tissu e. Additional coronal and sagittal reconstructed images reviewed. All images stored on PACS. All CT scanners at this facility use dose modulation, iterative reconstruction, and/or weight based d osing when appropriate to reduce radiation dose to as low as reasonably achievable (ALARA). [facility]: Dose Right [facility]: CareDose [facility]: Dose Right [facility]: Teradose 4D [facility]: Rumgr CONTRAST TYPE AND DOSE: contrast/concentration: Isovue 350.00 mg/ml; Total Contrast Delivered: 75.0 ml; Total Saline Delivered: 55.0 ml RENAL FUNCTION: Waived by the emergency room physician. RADIATION DOSE: CT Rad equipment meets quality standard of care and radiation dose reduction techniq ues were employed. CTDIvol: 30.4 mGy. DLP: 578 mGy-cm. . LIMITATIONS: None. FINDINGS: FACIAL BONES: There is a small abscess at the base of the root of 1 of the teeth on the le ft side, likely number 21. This is seen best on image 34 series 200 ORBITS: Intact. No fracture. Symmetric intact globes and retroorbital soft tissues. PARANASAL SINUSES: Clear. No significant mucosal thickening, mass or fluid. No nasal polyps. Maxilla ry sinus outlets are patent. SOFT TISSUES: There is stranding in the submandibular fat on the left. INFERIOR BRAIN: Limited view. No acute findings. OTHER: No other significant finding. IMPRESSION: Dental abscess. Mild inflammatory changes in the submandibular area on the left. No so ft tissue abscess. TECHNICAL DOCUMENTATION: JOB ID: [id number] Quality ID # [id number]: Final reports with documentation of one or more dose reduction techniques (e.g., Au tomated exposure control, adjustment of the mA and/or kV according to patient size, use of iterative reconstruction technique) 2010 [employer]- All Rights Reserved Reading location - IP/workstation name: [email or web address]
--- NOTE | 2018-07-08 14:09 | ER Document Report ---
HPI - HPI Pain Level: 4 Notes: Patient is a 42-year-old female who presents to the ED complaining of left lower jaw pain near tooth #22 with some mild swelling associated over the last couple days. Patient states that the pain will radiate around in her lower jaw. She still able to eat and drink without difficulties. She is urinating normally and having normal bowel movements. She has not noticed any abscess or purulent discharge. Patient states that she does have poor dentition. No other concerns or complaints. Denies any headache, fever, head injury, neck pain, URI, sore throat, chest pain, palpitations, syncope, cough, shortness of breath, wheeze, dyspnea, abdominal pain, nausea/vomiting/diarrhea, urinary retention, dysuria, hematuria, or rash. - ROS Systems Reviewed and Negative: Yes All other systems reviewed and negative - REPRODUCTIVE Reproductive: DENIES: : Past Medical History - Social History Smoking Status: Unknown if Ever Smoked Family History: CAD, COPD, CVA, Hyperlipidemia, Hypertension, Malignancy, Thyroid Disfunction. denies: DM Patient has suicidal ideation: No Patient has homicidal ideation: No - Past Medical History Cardiac Medical History: Reports: Hx Hypertension Denies: Hx Coronary Artery Disease, Hx Heart Attack Pulmonary Medical History: Reports: Hx Asthma, Hx Bronchitis, Hx COPD, Hx Pneumonia Neurological Medical History: Reports: Hx Migraine. Denies: Hx Cerebrovascular Accident, Hx Seizures Renal/ Medical History: Reports: Hx Ovarian Cysts. Denies: Hx Peritoneal Dialysis GI Medical History: Reports: Hx Gastritis, Hx Gastroesophageal Reflux Disease, Hx Ulcer, Hx Endoscopy Musculoskeletal Medical History: Reports Hx Arthritis, Reports Hx Musculoskeletal Deformity, Reports Hx Musculoskeletal Trauma - Wrist knee Psychiatric Medical History: Reports: Hx Anxiety, Hx Post Traumatic Stress Disorder Traumatic Medical History: Reports: Hx Fractures - Wrist Past Surgical History: Reports: Hx Oral Surgery - [place] teeth, Hx Orthopedic Surgery. Denies: Hx Hysterectomy - Immunizations Immunizations up to date: Yes Hx Diphtheria, Pertussis, Tetanus Vaccination: Yes - < 5yrs Vertical Provider Document - CONSTITUTIONAL Agree With Documented VS: Yes Notes: PHYSICAL EXAMINATION: GENERAL: Well-appearing, well-nourished and in no acute distress. HEAD: Atraumatic, normocephalic. EYES: Pupils equal round and reactive to light, extraocular movements intact, sclera anicteric, conjunctiva are normal. ENT: EAC clear b/l. TM's intact b/l without erythema, fluid, or perforation. Nares patent and without discharge. oropharynx clear without exudates. No tonsilar hypertrophy or erythema. Moist mucous membranes. No sinus tenderness. Uvula midline. No palatine shift. No tongue protrusion. No respiratory compromise. Mouth: Poor dentition. + severe decay and mild gingivitis. No obvious abscess or discharge noted. + mild left lower facial swelling. + tenderness to tooth #22. + tenderness to the left lower mandible area. NECK: Normal range of motion, supple without lymphadenopathy. No rigidity/ meningismus. LUNGS: Breath sounds clear to auscultation bilaterally and equal. No wheezes rales or rhonchi. HEART: Regular rate and rhythm without murmurs, rubs, gallops. NEUROLOGICAL: Cranial nerves grossly intact. Normal speech, normal gait. PSYCH: Normal mood, normal affect. SKIN: Warm, Dry, normal turgor, no rashes or lesions noted. - INFECTION CONTROL TRAVEL OUTSIDE OF THE [place] IN LAST 30 DAYS: No Course - Re-evaluation Re-evalutation: 07/08/18 14:04 Patient is an afebrile, well-hydrated, 42-year-old female who presents to the ED with left lower mandibular pain and dental abscess. Vitals are acceptable without significant tachycardia, tachypnea, or hypoxia. PE is otherwise unremarkable. I was unable to palpate fluctuant material or abscess within the oral mucosa at this time. I did consult with Dr. Dias who recommended CT scan with IV contrast to further evaluate for any other soft tissue abscess or something that can be I&D'd at this time. CT scan showed dental abscess without abscess to the soft tissue. Patient is tolerating p.o. without any difficulties and is nontoxic-appearing. Reviewed again with Dr. Dias who recommends antibiotics and consult with dentist/oral surgeon for dental extraction. Low suspicion for any Ludwigs, sepsis, meningitis, or airway compromise. I will send her home with a prescription for clindamycin. Conservative measures otherwise for symptoms. Recheck with your PCM in 3-5 days. Call a dentist today to schedule an appointment for further evaluation and management. Return to the ED with any worsening/concerning symptoms otherwise as reviewed in discharge. Patient is in agreement. - Vital Signs Vital signs: Temp Pulse Resp BP Pulse Ox 98.6 F 68 18 141/90 H 100 07/08/18 11:42 07/08/18 11:42 07/08/18 11:42 07/08/18 11:42 07/08/18 11:42 Discharge - Discharge Clinical Impression: Dental abscess Condition: Stable Disposition: HOME, SELF-CARE Instructions: Clindamycin ([facility]), Dentist Additional Instructions: Pauline and floss twice daily Maintain fluid intake Take antibiotics as directed Mouthwash, salt water gargles, peroxide rinse as needed Tylenol/ibuprofen as needed Recheck with PCM this week Call today/tomorrow and schedule an appointment with your dentist for further evaluation Return to the ED with any worsening symptoms and/or development of fever, headache, facial swelling, swelling of lips/tongue/throat, trouble swallowing, drooling, hoarseness, neck pain/stiffness, chest pain, palpitations, syncope, shortness of breath, trouble breathing, abdominal pain, n/v/d, numbness/tingling , or other worsening symptoms that are concerning to you. Prescriptions: Clindamycin HCl [Cleocin 300 mg Capsule] 300 mg PO TID #30 capsule Forms: Elevated Blood Pressure Referrals: RENEA MCKAY PA-C [Primary Care Provider] - Follow up in 3-5 days [facility] [Provider Group] - Follow up in 3-5 days
[2018-07-08] MEDS ORDERED: HYDROCODONE/ACETAMINOPHEN 5-325 MG (6 TAB/ER DISP) PO PRN (14:14)
[2018-07-08 15:02] VITALS: BP 136/85
== END 2018-07-08 15:02 | disposition home or self-care (01) ==
LOC: ER 11:38
DX: K04.7 Periapical abscess without sinus (principal); R68.84 Jaw pain; R22.0 Localized swelling, mass and lump, head; I10 Essential (primary) hypertension; J44.9 Chronic obstructive pulmonary disease, unspecified
CPT/HCPCS: 99283; 70487; J3490

== ENCOUNTER 2019-05-10 14:47 | Emergency (ER) | payer SELFPAY ==
[2019-05-10 15:13] VITALS: BP 161/108
--- NOTE | 2019-05-10 15:46 | ER Document Report ---
ED Medical Screen (RME) - General Chief Complaint: Chest Pain Stated Complaint: CHEST PAIN Time Seen by Provider: 05/10/19 15:40 Primary Care Provider: RENEA MCKAY PA-C [Primary Care Provider] - Follow up as needed Mode of Arrival: Ambulatory Information source: Patient Notes: Patient is a 43-year-old female with a history of hypertension and Menard's esophagus who presents to the ER today for 3 days of chest pain in the center of her chest that does radiate up to the left jaw and left ear and give her some shortness of breath. Patient states she is never had this pain before. She denies that this was after eating a meal, or feeling like she got any food stuck there. She denies any vomiting or coughing. TRAVEL OUTSIDE OF THE [place] IN LAST 30 DAYS: No - Related Data Allergies/Adverse Reactions: levofloxacin [From Levaquin] Allergy (Severe, Verified 05/10/19 14:51) MUSCLE PAIN NSAIDS (Non-Steroidal Anti-Inflamma [Nsaids] Allergy (Severe, Verified 05/10/19 14:51) AGGRAVATES KIDNEY STONES ketorolac tromethamine [From Toradol] Allergy (Intermediate, Verified 05/10/19 14:51) MAKES FEEL LIKE HEAD IS GOING TO BURST latex [Latex] Allergy (Intermediate, Verified 05/10/19 14:51) RASH, RIPS SKIN OFF promethazine HCl [From Phenergan] Allergy (Intermediate, Verified 05/10/19 14:51) MAKES FEEL WORSE tramadol Allergy (Intermediate, Verified 05/10/19 14:51) MAKES HEAD FEEL LIKE GOING TO BURST Penicillins Allergy (Mild, Verified 05/10/19 14:51) RASH Past Medical History - General Information source: Patient - Past Medical History Cardiac Medical History: Reports: Hx Hypertension Denies: Hx Coronary Artery Disease, Hx Heart Attack Pulmonary Medical History: Reports: Hx Asthma, Hx Bronchitis, Hx COPD, Hx Pneumonia Neurological Medical History: Reports: Hx Migraine. Denies: Hx Cerebrovascular Accident, Hx Seizures Renal/ Medical History: Reports: Hx Ovarian Cysts. Denies: Hx Peritoneal Dial ysis GI Medical History: Reports: Hx Gastritis, Hx Gastroesophageal Reflux Disease, Hx Ulcer, Hx Endoscopy Musculoskeltal Medical History: Reports Hx Arthritis, Reports Hx Musculoskeletal Deformity, Reports Hx Musculoskeletal Trauma - Wrist knee Psychiatric Medical History: Reports: Hx Anxiety, Hx Post Traumatic Stress Diso rder Traumatic Medical History: Reports: Hx Fractures - Wrist Past Surgical History: Reports: Hx Oral Surgery - [place] teeth, Hx Orthopedic Surgery. Denies: Hx Hysterectomy - Immunizations Immunizations up to date: Yes Hx Diphtheria, Pertussis, Tetanus Vaccination: Yes - < 5yrs Review of Systems - Review of Systems Cardiovascular: See HPI Respiratory: See HPI Gastrointestinal: See HPI Physical Exam - Vital signs Vitals: Temp Pulse Resp BP Pulse Ox 98.3 F 71 16 161/108 H 98 05/10/19 15:11 05/10/19 15:11 05/10/19 15:11 05/10/19 15:11 05/10/19 15:11 - Notes Notes: PHYSICAL EXAMINATION: GENERAL: Well-appearing and in no acute distress. LUNGS: CTAB and equal. No wheezes rales or rhonchi. HEART: Regular rate and rhythm without murmurs Course - Vital Signs Vital signs: Temp Pulse Resp BP Pulse Ox 98.3 F 71 16 161/108 H 98 05/10/19 15:11 05/10/19 15:11 05/10/19 15:11 05/10/19 15:11 05/10/19 15:11 Doctor's Discharge - Discharge Referrals: RENEA MCKAY PA-C [Primary Care Provider] - Follow up as needed
--- NOTE | 2019-05-10 17:05 | RADIOLOGY REPORT (SQ) ---
EXAM DESCRIPTION: CHEST SINGLE VIEW COMPLETED DATE/TIME: 05/10/2019 4:57 pm REASON FOR STUDY: jorge l haro COMPARISON: 06/27/2015 EXAM PARAMETERS: NUMBER OF VIEWS: One view. TECHNIQUE: Single frontal radiographic view of the chest acquired. RADIATION DOSE: NA LIMITATIONS: None. FINDINGS: LUNGS AND PLEURA: No opacities, masses or pneumothorax. No pleural effusion. MEDIASTINUM AND HILAR STRUCTURES: No masses. Contour normal. HEART AND VASCULAR STRUCTURES: Heart normal in size. Normal vasculature. BONES: No acute findings. HARDWARE: None in the chest. OTHER: No other significant finding. IMPRESSION: NO ACUTE RADIOGRAPHIC FINDING IN THE CHEST. TECHNICAL DOCUMENTATION: JOB ID: [id number] [employer]- All Rights Reserved Reading location - IP/workstation name: [email or web address]
[2019-05-10 17:18] LABS: HEMATOCRIT 32.8 % (36.0-47.0); HEMOGLOBIN 10.2 g/dL (12.0-15.5); MEAN CORPUSCULAR HEMOGLOBIN 23.1 pg (27.0-33.4); MEAN CORPUSCULAR HGB CONC 31.1 g/dL (32.0-36.0); MEAN CORPUSCULAR VOLUME 74 fl (80-97); PLATELET COUNT 469 10^3/uL (150-450); RED BLOOD COUNT 4.42 10^6/uL (3.72-5.28); RED CELL DISTRIBUTION WIDTH 18.7 % (11.5-14.0); WHITE BLOOD COUNT 7.6 10^3/uL (4.0-10.5)
[2019-05-10 17:33] LABS: ALANINE AMINOTRANSFERASE 11 U/L (9-52); ALBUMIN 4.4 g/dL (3.5-5.0); ALKALINE PHOSPHATASE 74 U/L (38-126); ANION GAP 10 (5-19); ASPARTATE AMINO TRANSFERASE 16 U/L (14-36); BILIRUBIN,DIRECT 0.2 mg/dL (0.0-0.4); BILIRUBIN,TOTAL 0.3 mg/dL (0.2-1.3); BLOOD UREA NITROGEN 9 mg/dL (7-20); CALCIUM 9.7 mg/dL (8.4-10.2); CARBON DIOXIDE 25 mmol/L (22-30); CHLORIDE 105 mmol/L (98-107); CREATINE KINASE 49 U/L (30-135); GLUCOSE 88 mg/dL (75-110); POTASSIUM 4.7 mmol/L (3.6-5.0); TOTAL PROTEIN 7.6 g/dL (6.3-8.2)
[2019-05-10 17:43] LABS: CREATINE KINASE MB 0.25 ng/mL (<4.55)
[2019-05-10 17:45] LABS: TROPONIN I < 0.012 ng/mL
[2019-05-10 17:58] LABS: ABSOLUTE LYMPHOCYTES# (MANUAL) 2.1 10^3/uL (0.5-4.7); ABSOLUTE MONOCYTES # (MANUAL) 0.2 10^3/uL (0.1-1.4); BASOPHILS % (MANUAL) 2 % (0-2); EOSINOPHILS % (MANUAL) 3 % (0-6); LYMPHOCYTES % (MANUAL) 28 % (13-45); MONOCYTES % (MANUAL) 3 % (3-13); SEGMENTED NEUTROPHILS % (MAN) 64 % (42-78); TOTAL CELLS COUNTED 100
[2019-05-10 17:59] LABS: ANISOCYTOSIS 2+; OVALOCYTES SLIGHT; PLATELET COMMENT INCREASED; POIKILOCYTOSIS SLIGHT
--- NOTE | 2019-05-10 21:22 | ER Document Report ---
ED Cardiac - General Chief Complaint: Chest Pain Stated Complaint: CHEST PAIN Time Seen by Provider: 05/10/19 15:40 Primary Care Provider: RENEA MCKAY PA-C [Primary Care Provider] - Follow up as needed Mode of Arrival: Ambulatory TRAVEL OUTSIDE OF THE [place] IN LAST 30 DAYS: No - Related Data Allergies/Adverse Reactions: levofloxacin [From Levaquin] Allergy (Severe, Verified 05/10/19 14:51) MUSCLE PAIN NSAIDS (Non-Steroidal Anti-Inflamma [Nsaids] Allergy (Severe, Verified 05/10/19 14:51) AGGRAVATES KIDNEY STONES ketorolac tromethamine [From Toradol] Allergy (Intermediate, Verified 05/10/19 14:51) MAKES FEEL LIKE HEAD IS GOING TO BURST latex [Latex] Allergy (Intermediate, Verified 05/10/19 14:51) RASH, RIPS SKIN OFF promethazine HCl [From Phenergan] Allergy (Intermediate, Verified 05/10/19 14:51) MAKES FEEL WORSE tramadol Allergy (Intermediate, Verified 05/10/19 14:51) MAKES HEAD FEEL LIKE GOING TO BURST Penicillins Allergy (Mild, Verified 05/10/19 14:51) RASH Past Medical History - General Information source: Patient - Social History Smoking Status: Current Every Day Smoker Chew tobacco use (# tins/day): No Frequency of alcohol use: None Drug Abuse: Marijuana Family History: CAD, COPD, CVA, Hyperlipidemia, Hypertension, Malignancy, Thyroid Disfunction. denies: DM Patient has suicidal ideation: No Patient has homicidal ideation: No - Past Medical History Cardiac Medical History: Reports: Hx Hypertension Denies: Hx Coronary Artery Disease, Hx Heart Attack Pulmonary Medical History: Reports: Hx Asthma, Hx Bronchitis, Hx COPD, Hx Pneumonia Neurological Medical History: Reports: Hx Migraine. Denies: Hx Cerebrovascular Accident, Hx Seizures Renal/ Medical History: Reports: Hx Ovarian Cysts. Denies: Hx Peritoneal Dialysis GI Medical History: Reports: Hx Gastritis, Hx Gastroesophageal Reflux Disease, Hx Ulcer, Hx Endoscopy Musculoskeletal Medical History: Reports Hx Arthritis, Reports Hx Muscul oskeletal Deformity, Reports Hx Musculoskeletal Trauma - Wrist knee Psychiatric Medical History: Reports: Hx Anxiety, Hx Post Traumatic Stress Disorder Traumatic Medical History: Reports: Hx Fractures - Wrist Past Surgical History: Reports: Hx Oral Surgery - Marcus teeth, Hx Orthopedic Surgery. Denies: Hx Hysterectomy - Immunizations Immunizations up to date: Yes Hx Diphtheria, Pertussis, Tetanus Vaccination: Yes - < 5yrs Physical Exam - Vital signs Vitals: Temp Pulse Resp BP Pulse Ox 98.3 F 71 16 161/108 H 98 05/10/19 15:11 05/10/19 15:11 05/10/19 15:11 05/10/19 15:11 05/10/19 15:11 Course - Vital Signs Vital signs: Temp Pulse Resp BP Pulse Ox 98.3 F 71 16 161/108 H 98 05/10/19 15:11 05/10/19 15:11 05/10/19 15:11 05/10/19 15:11 05/10/19 15:11 - Laboratory Result Diagrams: 05/10/19 16:45 05/10/19 16:45 Laboratory results interpreted by me: 05/10/19 16:45 Hgb 10.2 L Hct 32.8 L MCV 74 L MCH 23.1 L MCHC 31.1 L RDW 18.7 H Plt Count 469 H Discharge - Discharge Referrals: RENEA MCKAY PA-C [Primary Care Provider] - Follow up as needed
--- NOTE | 2019-05-10 23:15 | EKG REPORT ---
SEVERITY:- NORMAL ECG - SINUS RHYTHM : Confirmed by: Ruben Lam 10-May-2019 23:14:33
== END 2019-05-10 21:50 | disposition left against medical advice (07) ==
LOC: ER 14:47
DX: R07.9 Chest pain, unspecified (principal); R06.02 Shortness of breath; I10 Essential (primary) hypertension; J44.9 Chronic obstructive pulmonary disease, unspecified; Z88.1 Allergy status to other antibiotic agents; Z88.8 Allergy status to other drugs, medicaments and biological substances; Z91.040 Latex allergy status; Z88.5 Allergy status to narcotic agent; Z88.0 Allergy status to penicillin; Z53.20 Procedure and treatment not carried out because of patient's decision for unspecified reasons
CPT/HCPCS: 36415; 71045; 80053; 82550; 82553; 83690; 84484; 85025; 93005; 93010; 99281

== ENCOUNTER 2020-06-14 08:09 | Day surgery (SDC) | payer SELFPAY ==
[~2020-06-14 08:09] MED LIST: LIDOCAINE 2% INJ-PF (20 MG/ML) 10 ML AMPUL ONE; PROPOFOL INJ 200 MG/20 ML VIAL IV ONE
--- NOTE | 2020-06-14 09:32 | Operative Report ---
Operative Report DATE OF SURGERY: 06/14/20 Operative Report: The risks benefits and alternatives of the procedure explained to the patient in detail and informed consent is obtained.A GIF Olympus video scope was inserted into the patient's mouth and hypopharynx, the esophagus is identified intubated and insufflated, the scope was then advanced through the esophagus stomach and duodenum, retroflexion maneuver is done ,the esophagus stomach and first and second portions of the duodenum examined PREOPERATIVE DIAGNOSIS: Dysphagia POSTOPERATIVE DIAGNOSIS: Moderate Jodi esophagitis. Gastritis. Biopsies obtained. Hiatal hernia OPERATION: EGD with biopsy SURGEON: TARA HUSTON ANESTHESIA: LMAC TISSUE REMOVED OR ALTERED: As noted above COMPLICATIONS: None. ESTIMATED BLOOD LOSS: None. INTRAOPERATIVE FINDINGS: As noted above. PROCEDURE: Patient tolerated the procedure well. No immediate postprocedure complications are noted. Patient is discharged in good condition. Discharge date 06/14/2020. Discharge diet: Regular. Discharge activity: Regular. 2 to 3-week follow-up to discuss findings. Patient is instructed call the office or proceed to the emergency room should there be any further problems or questions. Wait on the pathology. Nystatin swish and swallow
[2020-06-14 10:08] VITALS: BP 132/80
== END 2020-06-14 10:19 | disposition home or self-care (01) ==
LOC: END 08:09
PROVIDERS: ATTEND Internal Medicine Gastroenterology
DX: K29.50 Unspecified chronic gastritis without bleeding (principal); K44.9 Diaphragmatic hernia without obstruction or gangrene; K21.9 Gastro-esophageal reflux disease without esophagitis; J44.9 Chronic obstructive pulmonary disease, unspecified; Z87.891 Personal history of nicotine dependence; I10 Essential (primary) hypertension; Z88.0 Allergy status to penicillin; M79.7 Fibromyalgia; Z79.899 Other long term (current) drug therapy; Z03.818 Encounter for observation for suspected exposure to other biological agents ruled out
CPT/HCPCS: 43239; 87635; 88342 ×2; 88305 ×2; J2704; J3490; C9803